=== PATIENT | female | born 1930 | race Caucasian/White ===

== ENCOUNTER 2017-02-27 10:13 | Outpatient (CLI) | payer MEDICARE, OTHER ==
--- NOTE | 2017-02-27 15:07 | NM ---
WHOLE BODY BONE SCAN: Date: 02/27/17 INDICATION: History of osseous metastatic disease. COMPARISON: Prior bone scan dated 08/23/16. RADIOPHARMACEUTICAL: 32.3 mCi technetium-99m MDP IV was utilized. FINDINGS: The activity seen within the T7 vertebra appears slightly more pronounced when compared to the most r ecent examination. Activity within the proximal left femur is similar appearing. Degenerative activit y in the right aspect of the cervical spine is similar appearing. Photopenic defects are similar. Deg enerative activity involving the shoulders and feet are similar appearing. IMPRESSION: 1. Persistent activity involving the T7 vertebra and left proximal femur consistent with osseous met astatic disease. No new osseous metastatic disease is demonstrated. 2. Degenerative activity in the cervical spine is similar appearing. POS: KRIS
== END 2017-02-27 10:14 | disposition home or self-care (01) ==
LOC: NM 10:13
PROVIDERS: ATTEND Internal Medicine Hematology & Oncology
DX: C50.919 Malignant neoplasm of unspecified site of unspecified female breast (principal); C79.51 Secondary malignant neoplasm of bone; M47.812 Spondylosis without myelopathy or radiculopathy, cervical region
CPT/HCPCS: 78306; A9503

== ENCOUNTER 2018-02-06 08:50 | Outpatient (CLI) | payer MEDICARE, OTHER ==
--- NOTE | 2018-02-06 14:19 | NM ---
WHOLE BODY BONE SCAN: INDICATION: History of osseous metastatic disease. COMPARISON: Recent bone scan dated 02/27/2017. RADIOPHARMACEUTICAL: 33 mCi of Technetium 99m MDP IV. FINDINGS: There is persistent prominent activity involving the T7 vertebral level. Mild activity is again seen involving the proximal left femur. Scattered degenerative activity is similar-appearing. 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 POS: KRIS
== END 2018-02-06 08:51 | disposition home or self-care (01) ==
LOC: NM 08:50
PROVIDERS: ATTEND Internal Medicine Hematology & Oncology
DX: C50.919 Malignant neoplasm of unspecified site of unspecified female breast (principal); C79.51 Secondary malignant neoplasm of bone
CPT/HCPCS: 78306; A9503

== ENCOUNTER 2019-02-08 09:34 | Outpatient (CLI) | payer MEDICARE, OTHER ==
--- NOTE | 2019-02-08 13:48 | NM ---
NUCLEAR MEDICINE WHOLE BODY BONE SCAN: HISTORY: Secondary malignant neoplasm of bone. COMPARISON: 02/06/2018, 02/27/2017, 08/23/2016. TECHNIQUE: Whole body bone scan was performed after the patient was administered 31.70 mCi of technetium 99m MDP intravenously. FINDINGS: Physiologic distribution of radiotracer. Stable photopenia involving the right knee. Stable arthritic changes involving the left or right shoulder. Stable uptake of radiotracer at the T7 level. Stable radio tracer uptake in the proximal left hip. No new areas of osseous uptake are appreciated. Stable uptake along the posterior left cervical spine. IMPRESSION: Persistent activity in the T7 vertebra and proximal left femur consistent with known osseous metastas es. No new osseous lesions are appreciated. Transcribed Date/Time: 02/08/2019 2:35 PM
== END 2019-02-08 09:35 | disposition home or self-care (01) ==
LOC: NM 09:34
PROVIDERS: ATTEND Internal Medicine Hematology & Oncology
DX: C50.912 Malignant neoplasm of unspecified site of left female breast (principal); C79.51 Secondary malignant neoplasm of bone
CPT/HCPCS: 78306; A9503